=== PATIENT | male | born 1990 | race Caucasian/White ===

== ENCOUNTER 2023-07-31 11:35 | Emergency (ER) | payer OTHER, SELFPAY ==
[2023-07-31 11:38] VITALS: BP 136/85; PULSE 121; TEMP 37; O2SAT 96; BMI 29.9
--- NOTE | 2023-07-31 15:10 | ED_ITS ---
HPI HPI - General Adult General Chief complaint: Upper Respiratory Infection Stated complaint: PUKING BLOOD Time Seen by Provider: 07/31/23 11:41 Source: patient Mode of arrival: walk-in History of Present Illness HPI narrative: The patient presented to the ER for evaluation because of chest pain upon my evaluation the patient mentioned that he does not want to be evaluated in the ER after I had a full history from the patient including the fact that he has been having this pain at least for few days retrosternal associated with coughing and it has been more as he has been exposed to chemicals from his work, The patient mentioned having 1 episode of coughing that have some bloody phlegm and 1 episode of vomiting as well. He denies any abdominal pain Related Data Home Medications ?Medication ?Instructions ?Recorded ?Confirmed No Known Home Medications 07/31/23 07/31/23 Allergies Allergy/AdvReac Type Severity Reaction Status Date / Time No Known Drug Allergies Allergy Verified 07/31/23 11:38 Opioid HPI Opioid Management Most Recent Opioid Data: No Data to Display Review of Systems ROS Status of ROS 10 or more systems reviewed and unremark able except as noted in history and below Exam Narrative Exam Narrative: The patient just wanted to leave Constitutional Vital Signs, click to edit/add: Last Vital Signs Temp 98.6 F 07/31/23 11:38 Pulse 121 H 07/31/23 11:38 Resp 18 07/31/23 11:38 BP 136/85 07/31/23 11:38 Pulse Ox 96 07/31/23 11:38 O2 Del Method Room Air 07/31/23 11:38 Course Vital Signs Vital signs: Vital Signs Temperature 98.6 F 07/31/23 11:38 Pulse Rate 121 H 07/31/23 11:38 Respiratory Rate 18 07/31/23 11:38 Blood Pressure 136/85 07/31/23 11:38 Pulse Oximetry 96 07/31/23 11:38 Oxygen Delivery Method Room Air 07/31/23 11:38 Temperature 98.6 F 07/31/23 11:38 Pulse Rate 121 H 07/31/23 11:38 Respiratory Rate 18 07/31/23 11:38 Blood Pressure 136/85 07/31/23 11:38 Pulse Oximetry 96 07/31/23 11:38 Oxygen Delivery Method Room Air 07/31/23 11:38 Medical Decision Making MDM Narrative Medical decision making narrative: The patient just wanted to leave and go to another hospital because he already called his cab and the car is outside He understand that this is a delay of the evaluation until he gets out of the hospital The patient understand the risk he is putting himself in by going to another hospital before an evaluation and that he signed AMA Discharge Plan Discharge Stand Alone Forms: Portal Instructions Chief Complaint: Upper Respiratory Infection Clinical Impression: Left against medical advice Patient Disposition: Left Against Medical Advice Condition: Good Prescriptions / Home Meds: No Action No Known Home Medications Print Language: [place] Referrals: Physician,Non-Staff, MD [Primary Care Provider] - 1 week Discharge Date/Time: 07/31/23 11:54
== END 2023-07-31 11:54 | disposition left against medical advice (07) ==
PROVIDERS: Emergency Provider Emergency Medicine
DX: R07.9 Chest pain, unspecified (principal); Z53.29 Procedure and treatment not carried out because of patient's decision for other reasons
CPT/HCPCS: 80053; 83735; 85610; 86850; 86900; 86901; 99283